=== PATIENT | male | born 1960 | race Caucasian/White ===

== ENCOUNTER → 2019-07-20 | Outpatient (CLI) | payer BC, MEDICARE ==
[~2019-07-20] MED LIST: ALBU2.5V4; FURO20TA4; FURO40TA4; GLIP10TA13; HYDR-3781; LORA-405 PO; METF-399; OXYC-465; OXYC10TA55; OXYC60TA7; POTA20TA15
--- NOTE | 2019-07-20 15:39 | Diagnostic Imaging Report ---
INDICATION: Mid back pain for 2 months. TIME OF EXAM: 2:30 PM. FINDINGS: S-shaped thoracolumbar scoliotic curvature is seen, convex to the left in the upper thoracic spine and convex to the right in the lower thoracic spine. There is normal kyphotic curvature. The vertebral body heights appear to be well maintained. No acute compression fracture is seen. There is generalized thoracic spondylosis with variable disc space narrowing and marginal spurring. The paraspinous line is intact. IMPRESSION: Thoracic spondylosis and scoliosis. No acute bony abnormality is detected. Dictated by: Dictated on workstation # [id number]
== END ==
LOC: RAD FS 14:18
PROVIDERS: ATTEND Family Medicine
DX: M47.814 Spondylosis without myelopathy or radiculopathy, thoracic region (principal); M41.9 Scoliosis, unspecified
CPT/HCPCS: 72070

== ENCOUNTER → 2019-12-19 | Outpatient (CLI) | payer BC, MEDICARE ==
[~2019-12-19] MED LIST changes: -OXYC-465; +OXYC-556
--- NOTE | 2019-12-19 10:42 | Diagnostic Imaging Report ---
EXAMINATION: CT Chest without contrast. TECHNIQUE: Multiple contiguous axial images were obtained through the chest without the use of intravenous contrast. All CT scans use one or more of the following dose optimizing techniques: automated exposure control, MA and/or KvP adjustment based on a patient size and exam type, or iterative reconstruction. HISTORY: COPD COMPARISON: 08/25/2015 FINDINGS: There is no edema or pneumonia. No pleural effusion. No pneumothorax. No suspicious nodules. Small perifissural lymph node is seen along the minor fissure. There is no axillary or supraclavicular lymphadenopathy. There is no mediastinal lymphadenopathy. Heart size is normal. There are mild coronary artery calcifications. No pericardial effusion. Aorta is normal in caliber. Limited views of the upper abdomen show a few small gallstones. There are no suspicious osseus lesions. IMPRESSION: 1. No acute abnormality in the chest. Dictated by: Dictated on workstation # [id number]
== END ==
LOC: RAD FS 10:15
PROVIDERS: ATTEND Internal Medicine Pulmonary Disease
DX: J44.9 Chronic obstructive pulmonary disease, unspecified (principal); Z87.891 Personal history of nicotine dependence
CPT/HCPCS: 71250

== ENCOUNTER 2020-01-13 18:13 | Emergency (ER) | payer BC, MEDICARE ==
[~2020-01-13] VITALS: Ht 172 cm; Wt 130.0 kg
[2020-01-13 18:46] LABS: BASOPHILS % (AUTO) 1 % (0-10); EOSINOPHILS # (AUTO) 0.1 10^3/uL (0.0-0.3); EOSINOPHILS % (AUTO) 2 % (0-10); HEMATOCRIT 41 % (40-54); HEMOGLOBIN 14.4 G/DL (13.3-17.7); LYMPHOCYTES # (AUTO) 0.8 X 10^3 (1.0-4.0); LYMPHOCYTES % (AUTO) 27 % (12-44); MEAN CORPUSCULAR HEMOGLOBIN 32 PG (25-34); MEAN CORPUSCULAR HGB CONC 36 G/DL (32-36); MEAN CORPUSCULAR VOLUME 90 FL (80-99); MEAN PLATELET VOLUME 9.1 FL (7.4-10.4); MONOCYTES # (AUTO) 0.4 X 10^3 (0.0-1.0); MONOCYTES % (AUTO) 12 % (0-12); NEUTROPHILS # (AUTO) 1.7 X 10^3 (1.8-7.8); NEUTROPHILS % (AUTO) 58 % (42-75); PLATELET COUNT 231 10^3/uL (130-400); WHITE BLOOD COUNT 2.9 10^3/uL (4.3-11.0)
--- NOTE | 2020-01-13 18:55 | Diagnostic Imaging Report ---
EXAMINATION: Chest 1 view. HISTORY: Shortness of breath. COMPARISON: 12/09/2019. FINDINGS: The lung volumes are normal. Hazy opacity is seen in the right mid lung and bilateral lung bases. No focal consolidation. No large pleural effusion or pneumothorax is seen. The cardiomediastinal silhouette is normal in size and contour. No acute osseous abnormality is seen. IMPRESSION: Hazy opacities in the right mid lung and bilateral lung bases, which may represent atelectasis or infection. No pleural effusion. Dictated by: Dictated on workstation # [id number]
[2020-01-13 19:05] LABS: ALANINE AMINOTRANSFERASE 35 U/L (0-55); ALKALINE PHOSPHATASE 93 U/L (40-136); BILIRUBIN,TOTAL 0.4 MG/DL (0.1-1.0); BUN/CREATININE RATIO 15; CALCIUM 9.7 MG/DL (8.5-10.1); CARBON DIOXIDE 26 MMOL/L (21-32); CHLORIDE 102 MMOL/L (98-107); GFR ESTIMATED > 60; GLUCOSE 312 MG/DL (70-105); POTASSIUM 4.2 MMOL/L (3.6-5.0); SODIUM 141 MMOL/L (135-145); TOTAL PROTEIN 7.5 GM/DL (6.4-8.2)
[2020-01-13 19:06] LABS: ALBUMIN 4.8 GM/DL (3.2-4.5)
[2020-01-13] MEDS ORDERED: RX-ALBUTEROL INHALER (VENTOLIN HFA) 18 GM IH STA (19:30)
--- NOTE | 2020-01-13 19:36 | ED Cough/URI ---
General Chief Complaint: Respiratory Problems Stated Complaint: SOA Nursing Triage Note: PT REPORTS A POSITIVE COVID EXPOSURE FROM HIS ON December. HE DEVELOPED A FEVER AND MILD SYMPTOMS SHORTLY AFTER. HE STATES HE CALLED DR. CABRERA 9 DAYS AGO BC HE WAS GETTING A "LUNG INFECTION" SO WAS PLACED ON LEVAQUIN FOR 7 DAYS, FINISHED THAT 2 DAYS AGO. INCREASED SOA AND COUGHING. Sepsis Screen: No Definite Risk Source: patient History of Present Illness Date Seen by Provider: Jan 13, 2020 Time Seen by Provider: 18:45 Initial Comments Patient is a 59-year-old male with known COVID exposure who presents with nasal congestion, cough, increased shortness of breath since first being exposed by COVID 9 days ago. Patient has subsequently been seen by his PCP and was prescribed Levaquin and was told he was developing a lung infection. Patient has completed the Levaquin 2 days ago and using albuterol inhaler without. Reports persistent cough and shortness of breath and fatigue. He denies chest tightness or pain other than cough. Denies abdominal pain, nausea vomiting, increased leg pain or swelling. No history of CAD, congestive heart failure, DVT or PE. No other acute symptoms or complaints. Timing/Duration: week, getting worse Severity/Quality: mild, dry cough Prior Episodes/Possible Cause: no prior episodes Modifying Factors: Improves With Albuterol Inhaler Associated Symptoms: chest pain/soreness, dizziness Allergies and Home Medications Allergies Uncoded Allergies: PCN (Allergy, Unknown, 08/25/15) Home Medications Lorazepam 1 Mg Tablet, 1 MG PO QID Prescribed by: STELLA KEENE on 08/25/152023 Patient Home Medication List Home Medication List Reviewed: Yes Review of Systems Review of Systems Constitutional: see HPI EENTM: see HPI Respiratory: see HPI Cardiovascular: see HPI Gastrointestinal: see HPI Genitourinary: see HPI Musculoskeletal: see HPI Skin: see HPI Psychiatric/Neurological: See HPI Hematologic/Lymphatic: See HPI Immunological/Allergic: see HPI All Other Systems Reviewed Negative Unless Noted: Yes Past [id number]-Hcyzlv Hx Past Med/Social Hx: Reviewed Nursing Past Med/Soc Hx Patient Social History Alcohol Use: Denies Use Recreational Drug Use: No Smoking Status: Former Smoker Type Used: Cigarettes Former Smoker, Quit: Feb 23, 2009 2nd Hand Smoke Exposure: No Recent Foreign Travel: No Contact w/Someone Who Travel: No Recent Infectious Disease Expo: No Recent Hopitalizations: No Physical Abuse: No Sexual Abuse: No Mistreated: No Fear: No Seasonal Allergies Seasonal Allergies: No Past Medical History Surgeries: Yes (BACK SX) Nose Respiratory: Yes COPD, Emphysema Currently Using CPAP: Yes Cardiac: No Chronic Edema/Swelling, High Cholesterol Neurological: No Genitourinary: No Kidney Stones Gastrointestinal: No Hemorrhoids Chronic Back Pain Endocrine: Yes Diabetes, Insulin dep HEENT: No Cancer: No Psychosocial: No Anxiety Blood Disorders: No Physical Exam Vital Signs - First Documented 01/13/20 18:46 Temp 35.9 Pulse 94 Resp 18 B/P (MAP) 93/50 (64) Pulse Ox 98 O2 Delivery Room Air Capillary Refill : Less Than 3 Seconds Height: 5'8" Weight: 280lbs. 0oz. [id number]; 43.00 BMI Method:Stated General Appearance: no apparent distress Eyes: Bilateral Eye Normal Inspection, Bilateral Eye PERRL, Bilateral Eye Abnormal EOM HEENT: PERRL/EOMI, normal ENT inspection, pharynx normal Neck: non-tender, supple Respiratory: no accessory muscle use, decreased breath sounds, rhonchi Cardiovascular: normal peripheral pulses, regular rate, rhythm, no edema, no m urmur Gastrointestinal: non tender, soft Extremities: normal range of motion Neurologic/Psychiatric: manager financial II-XII nml as tested, normal mood/affect, oriented x 3 Skin: normal color Lymphatic: no adenopathy Focused Exam Lactate Level 01/13/20 18:37: Lactic Acid Level 4.26*H 01/13/20 20:50: Lactic Acid Level 2.77*H Lactic Acid Level Laboratory Tests Test 01/13/20 18:37 01/13/20 20:50 Lactic Acid Level 4.26 MMOL/L (0.50-2.00) *H 2.77 MMOL/L (0.50-2.00) *H Progress/Results/Core Measures Suspected Sepsis Recent Fever Within 48 Hours: No Infection Criteria Present: None New/Unexplained Altered Menta: No Sepsis Screen: No Definite Risk SIRS Temperature: Pulse: 94 Respiratory Rate: 18 Laboratory Tests 01/13/20 18:37: White Blood Count 2.9L Blood Pressure 93 /50 Mean: 64 01/13/20 18:37: Lactic Acid Level 4.26*H 01/13/20 20:50: Lactic Acid Level 2.77*H Laboratory Tests 01/13/20 18:37: Creatinine 1.00, Platelet Count 231, Total Bilirubin 0.4 Results/Orders Lab Results Laboratory Tests Test 01/13/20 18:37 01/13/20 19:40 01/13/20 20:50 Range/Units White Blood Count 2.9 L 4.3-11.0 10^3/uL Red Blood Count 4.49 4.35-5.85 10^6/uL Hemoglobin 14.4 13.3-17.7 G/DL Hematocrit 41 40-54 % Mean Corpuscular Volume 90 80-99 FL Mean Corpuscular Hemoglobin 32 25-34 PG Mean Corpuscular Hemoglobin Concent 36 32-36 G/DL Red Cell Distribution Width 12.8 10.0-14.5 % Platelet Count 231 130-400 10^3/uL Mean Platelet Volume 9.1 7.4-10.4 FL Immature Granulocyte % (Auto) 0 % Neutrophils (%) (Auto) 58 42-75 % Lymphocytes (%) (Auto) 27 12-44 % Monocytes (%) (Auto) 12 0-12 % Eosinophils (%) (Auto) 2 0-10 % Basophils (%) (Auto) 1 0-10 % Neutrophils # (Auto) 1.7 L 1.8-7.8 X 10^3 Lymphocytes # (Auto) 0.8 L 1.0-4.0 X 10^3 Monocytes # (Auto) 0.4 0.0-1.0 X 10^3 Eosinophils # (Auto) 0.1 0.0-0.3 10^3/uL Basophils # (Auto) 0.0 0.0-0.1 10^3/uL Immature Granulocyte # (Auto) 0.0 0.0-0.1 10^3/uL D-Dimer 0.34 0.00-0.49 UG/ML Sodium Level 141 135-145 MMOL/L Potassium Level 4.2 3.6-5.0 MMOL/L Chloride Level 102 98-107 MMOL/L Carbon Dioxide Level 26 21-32 MMOL/L Anion Gap 13 5-14 MMOL/L Blood Urea Nitrogen 15 7-18 MG/DL Creatinine 1.00 0.60-1.30 MG/DL Estimat Glomerular Filtration Rate > 60 BUN/Creatinine Ratio 15 Glucose Level 312 H 70-105 MG/DL Lactic Acid Level 4.26 *H 2.77 *H 0.50-2.00 MMOL/L Calcium Level 9.7 8.5-10.1 MG/DL Corrected Calcium 8.5-10.1 MG/DL Total Bilirubin 0.4 0.1-1.0 MG/DL Aspartate Amino Transf (AST/SGOT) 25 5-34 U/L Alanine Aminotransferase (ALT/SGPT) 35 0-55 U/L Alkaline Phosphatase 93 40-136 U/L Troponin I < 0.30 <0.30 NG/ML Pro-B-Type Natriuretic Peptide 6.1 <75.0 PG/ML Total Protein 7.5 6.4-8.2 GM/DL Albumin 4.8 H 3.2-4.5 GM/DL My Orders Orders - JESSICA RAO DO Cbc With Automated Diff (01/13/20 18:29) Comprehensive Metabolic Panel (01/13/20 18:29) Troponin I Fs (01/13/20 18:29) Probnp Fs (01/13/20 18:29) Fibrin Degradation Products (01/13/20 18:29) Chest 1 View Ap/Pa Only (01/13/20 18:29) Lactic Acid Analyzer (01/13/20 18:59) Ns Iv 1000 Ml (Sodium Chloride 0.9%) (01/13/20 19:30) Coronavirus Sars-Cov-2 So 2018 (01/13/20 19:19) Dexamethasone Injection (Decadron Injec (01/13/20 19:30) Rx-Albuterol Inhaler (Rx-Ventolin Hfa) (01/13/20 19:30) Medications Given in ED Current Medications Medications Dose Ordered Sig/Shabbir Route Start Time Stop Time Status Last Admin Dose Admin Dexamethasone Sodium Phosphate 8 mg ONCE ONCE IV 01/13/20 19:30 01/13/20 19:32 DC 01/13/20 19:39 8 MG Vital Signs/I&O 01/13/20 18:46 Temp 35.9 Pulse 94 Resp 18 B/P (MAP) 93/50 (64) Pulse Ox 98 O2 Delivery Room Air Capillary Refill : Less Than 3 Seconds Blood Pressure Mean: 64 Departure Communication (Admissions) EKG: Reviewed CXR: Reviewed EKG, chest x-ray, lack reviewed. Symptoms consistent with fluid. Patient other lactic acid thought likely related to volume status, infection and metformin. Patient's symptoms significantly improved with treatment. Lactic acid improved prior to completion of second. Will hold metformin, continue supportive care with PCP follow-up the follow-up. Return precautions reviewed Pseudomonal Risk: No known risk Impression Primary Impression: Dyspnea Additional Impression: Acute bronchitis Disposition: 01 HOME, SELF-CARE Condition: Stable Departure-Patient Inst. Decision time for Depature: 21:16 Referrals: MARIUM CABRERA MD (PCP/Family) Primary Care Physician Patient Instructions: Acute Bronchitis, Shortness of Breath (Dyspnea) (DC) Add. Discharge Instructions: Please continue albuterol inhaler use, discontinue metformin. Continue self quarantined pending official COVID results. Follow up with PCP early next week for reevaluation. Return to the ED if new or worsening symptoms All discharge instructions reviewed with patient and/or family. Voiced understanding. JESSICA RAO DO Jan 13, 2020 19:36
[2020-01-13] MEDS: NS IV 1000 ML 1,000 ML IV SCH ×2 (19:39→20:48)
[2020-01-13 21:22] VITALS: BP 134/67
--- NOTE | 2020-01-16 09:56 | NUR ---
Attempted to Notify of positive COVID test. Left message to call back.
--- NOTE | 2020-01-16 15:15 | NUR ---
Notified of positive COVID test.
--- NOTE | 2020-01-16 15:18 | NUR ---
Patient [place] he would go where ever he wants to go and didn't care that he was positive. Very belligerent and cussing everyone including his doctor whom he said left town and he was firing. Gave me the status of where he saw government was at this time and told me the health dept could "go piss up a rope" Educated on COVID isolation and notified health dept. of this conversation.
== END 2020-01-13 21:30 | disposition home or self-care (01) ==
LOC: EDUNIT# 18:13 → ER FS 18:14
DX: U07.1 COVID-19 (principal); R06.00 Dyspnea, unspecified; J20.9 Acute bronchitis, unspecified; F41.9 Anxiety disorder, unspecified; Z87.891 Personal history of nicotine dependence; Z88.0 Allergy status to penicillin
CPT/HCPCS: 36415; 71045; 80053; 83605; 83880; 84484; 85025; 85379; 96361; 96374; 99284; U0002; 87635

== ENCOUNTER 2020-12-12 10:35 | Outpatient (RCR) | payer MEDICARE, OTHER | END 2020-12-12 13:09 | disposition home or self-care (01) | PROVIDERS: ATTEND Physician Assistant Surgical | DX: M54.9 Dorsalgia, unspecified (principal); J44.9 Chronic obstructive pulmonary disease, unspecified; E11.9 Type 2 diabetes mellitus without complications; M06.9 Rheumatoid arthritis, unspecified ==